=== PATIENT | female | born 1975 | race Caucasian/White ===

== ENCOUNTER 2018-03-18 10:06 | Outpatient (CLI) | payer BC ==
--- NOTE | 2018-03-18 11:33 | ULT ---
SONOGRAM ABDOMEN COMPLETE: History: Upper abdomen pain. FINDINGS: Echogenic material layers within the dependent portion of the gallbladder lumen. No gallbladder wall thickening or pericholecystic fluid. Common duct is 0.4 cm. The liver is unremarkable without focal m ass or intrahepatic biliary dilatation. No free fluid. The spleen, kidneys, and visualized portions o f the abdominal aorta and IVC have a normal appearance. Pancreas predominately obscured by bowel gas. IMPRESSION: Layering sludge within the gallbladder is consistent with chronic gallbladder dyskinesis. No evidence of acute biliary obstruction. POS: [facility]
== END 2018-03-18 10:07 | disposition home or self-care (01) ==
LOC: SCSULT 10:06
PROVIDERS: ATTEND Family Medicine
DX: R10.11 Right upper quadrant pain (principal); R11.2 Nausea with vomiting, unspecified; K82.8 Other specified diseases of gallbladder
CPT/HCPCS: 76700

== ENCOUNTER 2018-03-26 15:09 | Outpatient (CLI) | payer BC | END 2018-03-26 15:10 | disposition home or self-care (01) | LOC: BICULT 15:09 | PROVIDERS: ATTEND Surgery | DX: N83.209 Unspecified ovarian cyst, unspecified side (principal); R10.2 Pelvic and perineal pain; Z90.710 Acquired absence of both cervix and uterus | CPT/HCPCS: 76856 ==

== ENCOUNTER 2018-04-16 09:52 | Outpatient (CLI) | payer BC ==
[2018-04-16 12:00] LABS: #Eosinphils 0.3 thou/uL (0.0-0.7); #Lymphocytes 2.3 thou/uL (1.20-3.40); #Monocytes 0.5 thou/uL (0.11-0.59); #Neutrophils 5.1 thou/uL (1.40-6.50); %Basophils 0.4 % (0.0-1.0); %Eosinophils 3.9 % (0.0-10.0); %Lymphocytes 28.6 % (21.0-51.0); %Monocytes 5.6 % (0.0-10.0); %Neutrophils 61.6 % (42.0-75.0); Hemoglobin 13.9 g/dL (12.0-16.0); Mean Corpuscular HGB CONC 34.7 g/dL (32.0-36.0); Mean Corpuscular Hemoglobin 31.4 pg (27.0-31.0); Mean Corpuscular Volume 90.6 fL (78.0-98.0); Mean Platelet Volume 7.6 fL (7.4-10.4); Platelet Count 304 thou/uL (130-400); RBC Distribution Width 11.2 % (11.5-14.5); Red Blood Cell (RBC) Count 4.42 mill/uL (4.20-5.40); White Blood Cell (WBC) Count 8.2 thou/uL (4.8-10.8)
[2018-04-16 12:26] LABS: ALT (SGPT) 20 U/L (8-55); AST (SGOT) 13 U/L (5-34); Albumin 4.4 g/dL (3.5-5.0); Alkaline Phosphatase 58 U/L (40-150); Anion Gap 12 mmol/L (10-20); BUN (Urea Nitrogen) 12 mg/dL (7.0-18.7); Bilirubin, Total 0.4 mg/dL (0.2-1.2); Calc. Creatinine Clearance 0 mL/min (70-130); Calcium 9.7 mg/dL (7.8-10.44); Carbon Dioxide 24 mmol/L (22-29); Chloride 105 mmol/L (98-107); Estimated GFR-MDRD 78; Glucose 108 mg/dL (70-105); Potassium 3.8 mmol/L (3.5-5.1); Protein, Total 7.4 g/dL (6.0-8.3); Sodium 137 mmol/L (136-145)
== END 2018-04-16 09:53 | disposition home or self-care (01) ==
LOC: LABBT 09:52
PROVIDERS: ATTEND Surgery
DX: Z01.812 Encounter for preprocedural laboratory examination (principal); K80.20 Calculus of gallbladder without cholecystitis without obstruction
CPT/HCPCS: 80053; 81001; 85025; 87086

== ENCOUNTER 2022-11-15 07:24 | Outpatient (CLI) | payer BC | END 2022-11-15 07:25 | disposition home or self-care (01) | LOC: ULT 07:24 | PROVIDERS: ATTEND Family Medicine | DX: R10.84 Generalized abdominal pain (principal); K76.0 Fatty (change of) liver, not elsewhere classified; N83.202 Unspecified ovarian cyst, left side; Z90.49 Acquired absence of other specified parts of digestive tract | CPT/HCPCS: 76700; 76856 ==